=== PATIENT | male | born 1980 | race Hispanic/Latino ===

== ENCOUNTER 2019-01-22 09:35 | Emergency (ER) | payer SELFPAY ==
[2019-01-22] MEDS ORDERED: Albuterol Sulfate 2.5 mg/0.5 ml Neb ONE (09:45)
[2019-01-22] MEDS ORDERED: predniSONE 20 MG TAB ONE (09:49)
== END 2019-01-22 10:37 | disposition home or self-care (01) ==
LOC: ERS 09:35
DX: J45.901 Unspecified asthma with (acute) exacerbation (principal)
CPT/HCPCS: 94644; J7512; J7611; J7620